=== PATIENT | male | born 1980 | race African-American/Black ===

== ENCOUNTER 2017-11-09 13:34 | Observation (INO) | payer SELFPAY ==
[~2017-11-09 13:34] MED LIST: Glycopyrrolate 0.2 MG/ML 5 ML SYRINGE ONE; Lidocaine 1% PF 5 ML VIAL ONE; Ondansetron HCl/PF 4 MG/2 ML Vial ONE; Propofol 200 MG/20 ML VIAL ONE; Succinylcholine Chloride 20 MG/ML 10 ml SYRINGE FS ONE; ePHEDrine/0.9% NaCl/PF SYRINGE 50 mg/10 ml ONE
[2017-11-09] MEDS ORDERED: Ondansetron HCl/PF 4 MG/2 ML Vial ONE (14:13)
[2017-11-09 14:43] LABS: #Lymphocytes 1.2 thou/uL (1.20-3.40); #Monocytes 0.7 thou/uL (0.11-0.59); #Neutrophils 6.4 thou/uL (1.40-6.50); %Basophils 0.6 % (0.0-1.0); %Eosinophils 0.3 % (0.0-10.0); %Lymphocytes 14.7 % (21.0-51.0); %Monocytes 8.4 % (0.0-10.0); Hematocrit 38.3 % (42.0-52.0); Mean Platelet Volume 7.5 fL (7.4-10.4); White Blood Cell (WBC) Count 8.5 thou/uL (4.8-10.8)
[2017-11-09 14:54] LABS: Lactic Acid - Sepsis 1.6 mmol/L (0.5-2.2)
[2017-11-09 14:59] LABS: ALT (SGPT) 32 U/L (8-55); AST (SGOT) 15 U/L (5-34); Alkaline Phosphatase 62 U/L (40-150); Anion Gap 13 mmol/L (10-20); BUN (Urea Nitrogen) 9 mg/dL (8.9-20.6); Bilirubin, Total 0.5 mg/dL (0.2-1.2); CK (CPK) 80 U/L (30-200); Calc. Creatinine Clearance 0 mL/min (70-130); Carbon Dioxide 28 mmol/L (22-29); Chloride 103 mmol/L (98-107); Estimated GFR-MDRD Greater than 90; Globulin 3.1 g/dL (2.4-3.5); Lipase 52 U/L (8-78); Protein, Total 7.3 g/dL (6.0-8.3)
[2017-11-09 15:00] LABS: Bilirubin Small (Negative); Blood, Urine Negative (Negative); Glucose, Urine (Dipstick) Negative (Negative); Ketone, Urine Negative (Negative); Nitrite Negative (Negative); Protein, Urine (Dipstick) 30 mg/dL (Neg-Trace)
[2017-11-09 15:02] LABS: Bacteria/HPF Rare-Few HPF (None Seen); RBC/HPF None Seen HPF (0-3); Squamous Epithelial None Seen HPF (0-3); WBC/HPF None Seen HPF (0-3)
[2017-11-09 15:09] LABS: Amphetamine Not Detected (NotDetected); Methadone Not Detected (NotDetected); Methamphetamine Not Detected (NotDetected)
[2017-11-09] MEDS ORDERED: Benzocaine 20% Spray 60 ML CAN ONE (16:33)
--- NOTE | 2017-11-09 17:20 | CT ---
CT ABDOMEN AND PELVIS WITH IV CONTRAST: 11/09/17 HISTORY: Abdominal pain. COMPARISON: 10/17/14. FINDINGS: Lung bases are clear. There is marked fluid distention of the proximal to mid small bowel measuring u p to 4.2 cm. This extends to the level of a right inguinal hernia that contains dilated bowel. The di stal ileum and colon are predominantly decompressed. The liver, spleen, kidneys, adrenal glands, and pancreas are within normal limits. Hyperdensity at th e right renal collecting system is favored to represent excreted contrast. Urinary bladder is decompr essed. IMPRESSION: Large right inguinal hernia resulting in obstruction of the distal small bowel. POS: [facility]
--- NOTE | 2017-11-09 18:37 | HP ---
HISTORY OF PRESENT ILLNESS: A 37-year-old black male who recently returned from [place]. 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 The patient has had right inguinal hernia for some time. He states it comes and goes, on this occasion it has been incarcerated for unknown period of time. I cannot get him to tell me how long he has been stuck out. He has been having problems with abdominal distention and abdominal pain for some time. Apparently, he is in a longterm center in [place] due to past port issues. The patie nt [place] the country last [place] and reports to the emergency room. CAT scan revealed incarc erated right inguinal hernia that cannot be reduced. ALLERGIES: He reports as ASPIRIN. TOBACCO: None. ALCOHOL: None. MEDICATIONS: None routinely. PAST SURGICAL HISTORY: In 2013, incarcerated left inguinal hernia that repaired, otherwise noncontri butory. REVIEW OF SYSTEMS: Noncontributory. SOCIAL HISTORY: The patient reports weight loss recently from GI problems. I suspect maybe incarcer ated hernia. PHYSICAL EXAMINATION: VITAL SIGNS: Blood pressure 140/70, heart rate 89. LUNGS: Clear to auscultation. CARDIAC: Regular rate and rhythm without murmur. ABDOMEN: Distended, tympanitic incarcerated right inguinal hernia. Testicles normal. Left groin wi thout hernia. LABORATORY DATA: White count 8, hemoglobin 11.8. Basic metabolic profile is unremarkable. ASSESSMENT AND PLAN: Incarcerated right inguinal hernia that I cannot reduce. Plan repair, possibly using mesh tonight. I have explained to him he may need a laparotomy pending the condition of bowel . He understands risks and benefits and consents. He had a similar problem on the left side renata zarate in 2013.
[2017-11-09] MEDS ORDERED: CEFAZOLIN/Water 2 GM/20 ML SYRINGE ONE ×2 (19:13→19:16)
[2017-11-09] MEDS ORDERED: Morphine 4 MG/ML VIAL ONE (19:13)
[2017-11-09] MEDS ORDERED: Lidocaine 2% w/Epinephrine 1:200K 20 ML VIAL ONE (19:25)
[2017-11-09] MEDS ORDERED: Bupivacaine/Epinephrine 0.25% 30 ML VIAL ONE (19:25)
[2017-11-09] MEDS ORDERED: Lidocaine 2% PF 5 ML VIAL ONE (19:26)
[2017-11-09] MEDS ORDERED: Midazolam HCl 2 mg/2 ml Vial ONE (19:35)
[2017-11-09] MEDS ORDERED: Fentanyl 250 MCG/5 ML VIAL ONE (19:35)
[2017-11-09] MEDS ORDERED: Dextrose 5% in Water 1,000 ML IV PRN (20:50)
[2017-11-09] MEDS ORDERED: Dextrose 50% Abboject 50 ML SYRINGE SLOW IVP PRN (20:50)
[2017-11-09] MEDS ORDERED: Acetaminophen 1,000 MG in Premix Bag 1 BAG IVPB PRN (20:52)
[2017-11-09] MEDS ORDERED: Promethazine HCl 25 MG/ML VIAL SLOW IVP PRN (21:20)
[2017-11-09] MEDS ORDERED: Ondansetron HCl/PF 4 MG/2 ML Vial IVP PRN (21:20)
[2017-11-09] MEDS ORDERED: Promethazine HCl 25 MG/ML VIAL IM PRN (21:20)
--- NOTE | 2017-11-09 22:27 | OP ---
DATE OF OPERATION: 11/09/2017 PREOPERATIVE DIAGNOSIS: Incarcerated right inguinal hernia. POSTOPERATIVE DIAGNOSIS: Incarcerated right inguinal hernia. PROCEDURE: PHS mesh repair of incarcerated right inguinal hernia. SURGEON: Dr. Robles Resendiz. ANESTHESIA: General. Local 0.25% Marcaine with epinephrine, 30 mL, mixed with 1% Xylocaine with epi nephrine, 30 mL, total volume mixture used, general anesthesia. FINDINGS: Incarcerated right inguinal hernia reduced after under anesthesia and indirect hernia. PROCEDURE IN DETAIL: Patient taken to the operating room where under general anesthesia, abdomen, gr oin, scrotum were clipped of hair, prepared with ChloraPrep, draped in routine fashion. Ioban was us ed. Incision made in the right groin and local anesthetic mixture infiltrated into skin and subcutan eous tissue for ilioinguinal nerve block and along the line of incision lower right groin. Incision carried down through the skin and subcutaneous tissue. External oblique incised in the direction of its fibers and the cord structure dissected free with a Ra drain. There were chronic scarring a nd inflammatory changes. Cremasteric fibers taken down. Hernia sac identified, opened under direct visualization, dissected free, and highly ligated with 0 Nurolon suture. Prior to ligating it and I inspected the abdominal contents as the hernia had been reduced after general anesthetic. Visualized bowel was normal. High ligation of hernia sac performed as described with 0 Nurolon and high excisi on of the hernia sac performed. The stump of the hernia sac, underlay portion of the PHS mesh secure d with 0 Nurolon suture and underlay portion placed in the preperitoneal space, onlay portion placed in the floor of canal, placing the extended portion superiorly in the inguinal canal and making a sli t in the mesh laterally to the cylindrical connecting piece, bringing the mesh laterally around the c ord structures, secured to itself again in to Poupart's ligament with 0 Nurolon suture. Inferiorly, the mesh secured to Pedro Pablo's ligament. External oblique closed with continuous suture of 3-0 Monocry l. Skin approximated with continuous subcuticular suture of 4-0 Monocryl and local anesthetic mixtur e infiltrated in the space of the inguinal canal and space above and below Camper's fascia. Patient tolerated the procedure well.
[2017-11-09] MEDS: Lactated Ringer's 1,000 ML IV SCH (23:06)
[2017-11-10] MEDS: Acetaminophen 1,000 MG in Premix Bag 1 BAG IVPB SCH ×2 (00:35→06:45)
[2017-11-10] MEDS: Lactated Ringer's 1,000 ML IV SCH (04:46)
[2017-11-10 05:51] LABS: #Basophils 0.1 thou/uL (0.0-0.2); #Eosinphils 0.1 thou/uL (0.0-0.7); #Monocytes 0.9 thou/uL (0.11-0.59); #Neutrophils 7.5 thou/uL (1.40-6.50); %Basophils 0.7 % (0.0-1.0); %Eosinophils 0.8 % (0.0-10.0); %Lymphocytes 18.5 % (21.0-51.0); %Monocytes 8.4 % (0.0-10.0); Hematocrit 31.9 % (42.0-52.0); Mean Platelet Volume 10.5 fL (7.4-10.4); Red Blood Cell (RBC) Count 3.46 mill/uL (4.70-6.10); White Blood Cell (WBC) Count 10.5 thou/uL (4.8-10.8)
[2017-11-10 06:14] LABS: Anion Gap 10 mmol/L (10-20); BUN (Urea Nitrogen) 6 mg/dL (8.9-20.6); Calc. Creatinine Clearance 122 mL/min (70-130); Calcium 8.3 mg/dL (7.8-10.44); Carbon Dioxide 27 mmol/L (22-29); Chloride 103 mmol/L (98-107); Estimated GFR-MDRD Greater than 90
[2017-11-10] MEDS ORDERED: traMADol HCl 50 MG TAB PO PRN ×2 (08:00)
[2017-11-10] MEDS ORDERED: Enoxaparin Sodium 40 MG/0.4 ML SYRINGE SC SCH (09:00)
[2017-11-10] MEDS ORDERED: Acetaminophen 500 MG TAB PO PRN (10:00)
--- NOTE | 2017-11-10 11:49 | PRG ---
DATE OF SERVICE: 11/10/2017 SUBJECTIVE: Mr. Madrid is feeling much better today. The crampy abdominal pain that he was havi ng prior to his hernia repair has resolved. He has no nausea and is tolerating a full liquid diet. He states that he has not required any pain medications since his surgery. He is afebrile with hugh l vital signs. His abdomen is soft, nontender, nondistended. His incision is clean and there is no evidence of bulging or bruising at the operative site. ASSESSMENT: Status post repair of incarcerated, but not strangulated inguinal hernia. His obstructi ve symptoms have resolved and his abdominal exam is benign. He is tolerating full liquids and we flakito l advance his diet and activities. If he tolerates these, he can go home later today.
[2017-11-10 14:07] VITALS: BMI 19.1
[2017-11-11 07:27] VITALS: BP 106/71
[2017-11-11 11:35] VITALS: TEMP 98
--- NOTE | 2017-11-11 14:34 | PRG ---
DATE OF SERVICE: 11/11/2017 SUJECTIVE: Mr. Madrid is doing well today. He is tolerating his diet. He is passing flatus. P hysical therapy has worked with him and giving him crutches. I have told him he can ambulate without crutches and he probably does not need them. OBJECTIVE: LUNGS: Clear to auscultation. CARDIAC: Regular rate and rhythm without murmur or gallop. ABDOMEN: Soft, nontender. He is passing flatus. EXTREMITIES: Surgical wound right groin is well healed. ASSESSMENT: Status post incarcerated right inguinal hernia, resolved surgically, mesh repair inguina l hernia. PLAN: Discharge home today. Follow up in my office in two weeks. No lifting over 25 pounds for one week then activity as tolerated. He can shower and bathe. Diet as tolerated.
--- NOTE | 2017-11-11 17:27 | DIS ---
DATE OF ADMISSION: 11/09/2017 DATE OF DISCHARGE: 11/11/2017 DISCHARGE DIAGNOSIS: Incarcerated right inguinal hernia with bowel obstruction. HISTORY: A 37-year-old, slender black male, 6 foot, 145 pounds, who I saw for an incarcerated left i nguinal hernia in 2013, undergoing PHS mesh repair, hospitalized for 3-4 days. Reports, he has had i ntermittent problems with a right inguinal hernia that was reducible. It is difficult for him to tel l me how long this has been incarcerated on the right. He was in [place], returning to the [facility] while in [place]. He had past for problems and was in a [facility] and did have a bdominal distention, pain. He states is [place] physician saw him and told him that was okay and [facility] arrange for an emergent return flight and he went home. Initially, this trying to eat could not been reported to the emergency room and appreciated clinically to have an incarcerated dire ct right inguinal hernia with obstruction, abdominal distention verified radiologically by CAT scan, admitted emergently undergoing same evening and reduction under anesthesia and repair of his right in guinal hernia with mesh. patient was kept overnight and is now being discharged home with Tylenol as needed for pain and Ultram in case he needs it. He is allergic to DISCHARGE MEDICATIONS: Aspirin, but he avoids Advil, ibuprofen, NSAIDs. No lifting over 25 pounds for one week. Diet and activity a s tolerated, otherwise. Encourage be ambulatory and walking.
== END 2017-11-11 15:16 | disposition home or self-care (01) ==
LOC: SCSER 13:34 → T4-A 18:41 → SDC/OP 19:15 → T4-A 21:44
PROVIDERS: ADMIT Specialist; ATTEND Specialist
PROC: 0YU50JZ Supplement Right Inguinal Region with Synthetic Substitute, Open Approach (ICD-10-PCS; principal; 2017-11-11)
DX: K40.30 Unilateral inguinal hernia, with obstruction, without gangrene, not specified as recurrent (principal); Z88.8 Allergy status to other drugs, medicaments and biological substances
CPT/HCPCS: 36415; 74177; 80048; 80053; 80306; 81003; 81015; 82550; 83605; 83690; 85025; 93005; 96361; 96372; 96374; 96375; A4216; C1781; G0378; G8978-GP-CJ; G8979-GP-CJ; G8980-GP-CJ; J0131; J1650; J2001; J2250; J2270; J2405; J2704; J3010